=== PATIENT | male | born 1975 | race Caucasian/White ===

== ENCOUNTER → 2018-04-29 08:44 | Outpatient (CLI) | payer BC, SELFPAY ==
[2018-04-29 11:09] LABS: Anion Gap 5 (5-15); BUN 17 mg/dL (7-18); BUN/Creat Ratio 15.7 RATIO (10-20); Calcium,Total 8.8 mg/dL (8.5-10.1); Chloride 107 mmol/L (98-107); Cholesterol 160 mg/dL (200); Creatinine, Serum 1.08 mg/dL (0.70-1.30); EST Glomerular Filtration Rate 80 mL/min (>60); Est Glom Filt Rate - Afr Amer 97 mL/min (>60); Glucose 93 mg/dL (74-106); High Density Lipoprotein 46 mg/dL; Sodium Level 140 mmol/L (136-145); Triglycerides 51 mg/dL; Very Low Density Lipoprotein 10 mg/dL (5-40)
== END ==
PROVIDERS: Family Provider Family Medicine; PCP Family Medicine; Visit Provider Family Medicine
DX: Z00.00 Encounter for general adult medical examination without abnormal findings (principal)
CPT/HCPCS: 36415; 80048; 80061

== ENCOUNTER → 2018-08-19 14:46 | Outpatient (CLI) | payer BC, SELFPAY ==
--- NOTE | 2018-08-19 14:50 | RAD_ITS ---
STUDY: X-RAY - CERVICAL SPINE REASON FOR EXAM: Male, 43 years old. Stiff neck and left side finger tingling. TECHNIQUE: Frontal, lateral, bilateral oblique, swimmer's view, odontoid view of the cervical spine were obtained. COMPARISON: None FINDINGS: Prevertebral soft tissues and airways normal. Craniofacial osseous structures within the field of view unremarkable. Apical lungs clear. Apical thoracic cage intact. Cervical soft tissues normal. Vertebral body height and alignment are normal with preserved lordosis. The facet joints are normally aligned and intact with only minimal facet arthropathy. In the oblique views there is no evidence of bony foraminal stenosis in the posterior element appear intact. The odontoid and lateral masses are intact and aligned. There is normal alignment across the cervicothoracic junction. There are very minimal degenerative features with small anterior osteophytes at C2-C3 and C3-C4. There is mild disc tearing at C5-C6 with mild uncovertebral joint hypertrophy. RAD/Cerv Spine 4 or 5 Views IMPRESSION: Mild spondylosis with disc degeneration slightly more prominent at C5-C6. Electronically Signed: Tigre Prasad, at 15:16 EDT Tel , Service support ,
== END ==
PROVIDERS: Family Provider Family Medicine; PCP Family Medicine; Visit Provider Family Medicine
DX: M54.2 Cervicalgia (principal)
CPT/HCPCS: 72050

== ENCOUNTER 2021-12-06 09:34 | Outpatient (CLI) | payer BC, SELFPAY ==
[2021-12-06 10:41] LABS: Anion Gap 6 (5-15); BUN 20 mg/dL (7-18); BUN/Creat Ratio 17.2 RATIO (10-20); Calcium,Total 9.5 mg/dL (8.5-10.1); Chloride 108 mmol/L (98-107); Cholesterol 222 mg/dL (200); Creatinine, Serum 1.16 mg/dL (0.70-1.30); EST Glomerular Filtration Rate 72 mL/min (>60); Est Glom Filt Rate - Afr Amer 88 mL/min (>60); Glucose 95 mg/dL (74-106); High Density Lipoprotein 64 mg/dL; Potassium 4.7 mmol/L (3.5-5.1); Sodium Level 140 mmol/L (136-145); Thyroid Stim Hormone (TSH) 1.05 uIU/mL (0.358-3.74); Triglycerides 59 mg/dL; Very Low Density Lipoprotein 12 mg/dL (5-40)
== END 2021-12-06 23:59 | disposition home or self-care (01) ==
LOC: MFPLAB 09:38
PROVIDERS: PCP Family Medicine; Referring Provider Family Medicine; Visit Provider Family Medicine
DX: Z00.00 Encounter for general adult medical examination without abnormal findings (principal)
CPT/HCPCS: 36415; 80048; 80061; 84443

== ENCOUNTER → 2023-10-31 | Outpatient (CLI) | payer BC, SELFPAY ==
[2023-10-31 15:34] LABS: Anion Gap 4 (5-15); BUN 18 mg/dL (7-18); BUN/Creat Ratio 15.7 RATIO (10-20); Calcium,Total 9.3 mg/dL (8.5-10.1); Chloride 107 mmol/L (98-107); Cholesterol 206 mg/dL (200); Creatinine, Serum 1.15 mg/dL (0.70-1.30); EST Glomerular Filtration Rate 73 mL/min (>60); Est Glom Filt Rate - Afr Amer 88 mL/min (>60); Glucose 98 mg/dL (74-106); High Density Lipoprotein 74 mg/dL; Potassium 4.4 mmol/L (3.5-5.1); Sodium Level 138 mmol/L (136-145); Triglycerides 40 mg/dL; Very Low Density Lipoprotein 8 mg/dL (5-40)
== END | disposition home or self-care (01) ==
PROVIDERS: PCP Family Medicine; Referring Provider Family Medicine; Visit Provider Family Medicine
DX: Z00.00 Encounter for general adult medical examination without abnormal findings (principal)
CPT/HCPCS: 36415; 80048; 80061

== ENCOUNTER → 2024-02-09 | Outpatient (CLI) | payer BC, SELFPAY ==
--- NOTE | 2024-02-09 16:21 | RAD_ITS ---
INDICATION: ABD PAIN EXAMINATION/TECHNIQUE: X-RAY - XR Abdomen 1 View COMPARISON: None FINDINGS: BOWEL GAS PATTERN: No abnormally distended, air-filled bowel loops or air fluid levels. FREE AIR: No free air below diaphragm. ORGANOMEGALY: Not seen. CALCIFICATIONS: No abnormal calcifications observed. LOWER CHEST: No acute pathology. BONES AND SOFT TISSUES: No acute pathology. RAD/Abdomen Single View IMPRESSION: No radiographic evidence of acute intra-abdominal pathology. Electronically Signed: Jamie Butler DO at 23:56 EDT ,
[2024-02-09 17:40] LABS: Absolute Lymphocyte Count 2.41 X10^3/uL (0.83-4.51); Absolute Neutrophil Count 3.7 X10^3/uL (2.0-7.7); Basophil# 0.06 X10^3/uL; Basophil% 0.9 % (0-1); Eosinophil# 0.07 X10^3/uL; Hematocrit 48.1 % (40-54); Hemoglobin 16.2 g/dL (13.0-16.5); Lymphocyte # 2.41 X10^3/ul (0.83-4.51); Mean Corp Hgb Conc 33.7 g/dL (32-36); Mean Corpuscular Hgb 28.5 pg (27.0-32.0); Mean Corpuscular Volume 84.7 fL (80-94); Mean Platelet Vol. 8.8 fl (6.2-12.0); Monocyte# 0.68 X10^3/uL; Monocyte% 9.9 % (0-10); NRBC Flagged by Analyzer 0 % (0-5); Neutrophil # 3.65 X10^3/uL (2.7-7.7); Neutrophil % 53.1 % (47-70); Platelet Count 379 K/mm3 (150-450); RBC Distribution Width CV 12.7 % (11.6-14.6); Red Blood Count 5.68 M/mm3 (4.6-6.2); White Blood Count 6.9 K/mm3 (4.4-11.0)
[2024-02-09 18:14] LABS: ALB/GLOB Ratio 1.1 RATIO (0.9-2.4); AST(SGOT) 14 U/L (15-37); Alanine Aminotransfer ALT/SGPT 24 U/L (16-61); Albumin, Serum 4.2 g/dL (3.2-5.0); Alkaline Phosphatase 65 U/L (45-117); Anion Gap 7 (5-15); BUN 13 mg/dL (7-18); Calcium,Total 9.3 mg/dL (8.5-10.1); Chloride 109 mmol/L (98-107); Creatinine, Serum 1.18 mg/dL (0.70-1.30); EST Glomerular Filtration Rate 70 mL/min (>60); Est Glom Filt Rate - Afr Amer 85 mL/min (>60); Globulin 3.9 g/dL (2.2-4.2); Glucose 142 mg/dL (74-106); Potassium 3.5 mmol/L (3.5-5.1); Protein, Total 8.1 g/dL (6.4-8.2); Sodium Level 141 mmol/L (136-145)
== END | disposition home or self-care (01) ==
LOC: MTLAB 16:20
PROVIDERS: PCP Family Medicine; Referring Provider Family Medicine; Visit Provider Family Medicine
DX: R10.9 Unspecified abdominal pain (principal)
CPT/HCPCS: 36415; 74018; 80053; 85025

== ENCOUNTER 2024-08-24 08:57 | Day surgery (SDC) | payer BC, SELFPAY ==
[2024-08-24] VITALS (8 sets, daily range): BP systolic 106–138; BP diastolic 89–96; PULSE 69–92; RESP 16; TEMP 36.5–37.4; O2SAT 97–98; BMI 31.1
--- NOTE | 2024-08-24 09:45 | PCM.PRE.AN2 ---
ASA Classification* ASA Classification ASA Classification: 2 Assessment & Plan Anesthesia* Anesthesia Assessment Anesthesia Assessment: Discussed sedation and/or anesthesia options, risks, benefits, and alternatives with patient/parents/legal guardian/POA. Questions invited. The patient/parents/legal guardian/POA seems to understand and agrees to proceed with anesthesia plan. Reviewed the physical assessment, medical history, allergy history and patient home medications list prior to surgery/procedure/anesthetic and documented any changes. Performed airway and anesthesia risk assessments. Anesthesia Type Anesthesia Type: MAC (see written pre anesthesia record for full assessment) Anesthesia Focused Assessment* Blood Pressure: 138/96 Airway Assessment Mouth opens: >3 cm Mallampati Score: II Focused Labs Anesthesia Preop lab: CBC WBC 6.9 K/mm3 (4.4-11.0) 02/09/24 16:21 RBC 5.68 M/mm3 (4.6-6.2) 02/09/24 16:21 Hgb 16.2 g/dL (13.0-16.5) 02/09/24 16:21 Hct 48.1 % (40-54) 02/09/24 16:21 Plt Count 379 K/mm3 (150-450) 02/09/24 16:21 CHEMISTRY Potassium 3.5 mmol/L (3.5-5.1) 02/09/24 16:21 Sodium 141 mmol/L (136-145) 02/09/24 16:21 BUN 13 mg/dL (7-18) 02/09/24 16:21 Creatinine 1.18 mg/dL (0.70-1.30) 02/09/24 16:21 Glucose 142 mg/dL (74-106) H 02/09/24 16:21 TSH 1.05 uIU/mL (0.358-3.74) 12/06/21 09:39 COAG Pre-Assessment Diagnosis/Proposed Procedure Planned Operative Procedure(s): CSCOPE OA Anesthesia History Anesthesia History - laborer golf course: Anesthesia History - laborer golf course Hx Hospitalization No 08/20/24 12:05 Any Problems With Anesthesia No 08/20/24 12:05 Cholinesterase deficiency No 08/20/24 12:05 You/Your Family Experience No 08/20/24 12:05 fever (hyperthermia) with Relationship Recent Exposure to Contagious No 08/24/24 09:19 Disease Does patient have nerve No 08/20/24 12:05 stimulator Patient instructed to have device shut off --Does patient have Pacemaker No 08/24/24 09:19 or ICD? When Was Last Pacemaker Check QUESTION #4 FULL TEXT: You/Your Family Experience fever (hyperthermia) with Anesthesia Last Oral Intake Last Oral intake: Last Oral Intake NPO since 00:00 08/24/24 09:19 Meds taken in AM with sips of No 08/24/24 09:19 water? Meds patient instructed to take am of surgery PONV PONV - laborer golf course: PONV - laborer golf course Female No 08/20/24 12:05 HX of Motion Sickness No 08/20/24 12:05 HX of N/V After Surgery No 08/20/24 12:05 Non-Smoker Yes 08/20/24 12:05 Duration of Surgery greater No 08/20/24 12:05 than 60 minutes Number of Risk Factors 1 08/20/24 12:05 PONV Score Low Risk 08/20/24 12:05 Height & Weight Height & Weight: Anesthesia: Height & Weight Height 5 ft 11 in 08/24/24 09:19 Weight: 101.151 kg 08/24/24 09:19 Body Mass Index (BMI) 31.1 08/24/24 09:19 Respiratory Assessment Respiratory Assessment - laborer golf course: Respiratory Tract Infection Hx - laborer golf course Hx Respiratory Tract Infection No 08/20/24 12:05 STOP Sleep Apnea STOP Sleep Apnea - laborer [employer]: STOP Sleep Apnea - laborer [employer] Hx Hypertension Yes: NO MEDS FOR 5 YRS 08/20/24 12:05 Hx Sleep Apnea No 08/20/24 12:05 CPAP BIPAP Do you snore loudly (louder No 08/20/24 12:05 than talking or can be heard Do you often feel tired/ No 08/20/24 12:05 fatigued/ sleepy during daytime? Has anyone observed you stop Yes 08/20/24 12:05 breathing during sleep? STOP Results Positive 08/20/24 12:05 QUESTION #5 FULL TEXT : Do you snore loudly (louder than talking or can be heard through closed doors)? Tobacco Use History Tobacco Use History - laborer golf course: Tobacco Use History - laborer golf course Tobacco Use Smoking Status Never smoker 08/20/24 12:05 Hx Tobacco Use No 08/20/24 12:05 Years Smoking Packs Smoked per Day Smoking Cessation Date was within the last 15 years Hx Smoking Cessation Date Hx Smoking Cessation Counseling Hematologic Medial History Hematologic Hx - laborer golf course: Hematologic Medical Hx - documentation supervisor Hx of Blood Transfusion No 08/20/24 12:05 Hx of Transfusion in last 3 No 08/20/24 12:05 Months Date of Last Transfusion (if within last 3 months) Ever experience any problems No 08/20/24 12:05 with transfusion(s)? Specify any problems Hx of Preganancy in last 3 N/A 08/20/24 12:05 Months Nurse Filling Out Transfusion DSCHRIBER 08/20/24 12:05 & Questions: Date: 08/20/24 08/20/24 12:05 Time: 12:07 08/20/24 12:05 Patient unable to answer at this time (ie. confused, unrespo /Reproduction History /Reproductive History - laborer golf course: /Reproductive Hx- laborer golf [employer] Hx Now No 08/20/24 12:05 Gestational Age (in weeks): EDC: Hx Hx Para Hx Section SAB No 08/20/24 12:05 PFSH Medical History (Updated 08/20/24 @ 12:11 by Nivia Yuen) Wears hearing aid Wears glasses Depression Alcohol use Anxiety Restless legs Back pain History of IBS Non-smoker Hypertension Family history of colon cancer in mother Home Medications ?Medication ?Instructions ?Recorded ?Last Taken ?Type citalopram 20 mg tablet 20 mg PO DAILY 07/07/24 08/23/24 History Allergy/AdvReac Type Severity Reaction Status Date / Time Penicillins Allergy Hives Verified 08/24/24 09:18 Tetanus Vaccines and Toxoid Allergy Anaphylaxis Verified 08/24/24 09:18 Family History (Updated 07/07/24 @ 10:20 by Ana Lilia Kenyon) Mother Colon cancer Heart disease Father Hypertension Grandfather Colon cancer CAD (coronary artery disease) Surgical History (Updated 08/20/24 @ 12:11 by Nivia Yuen) History of tonsillectomy Social History (Updated 07/07/24 @ 10:21 by Ana Lilia Kenyon) household members: spouse current occupational status: employed current occupation: [employer] Smoking Status: Never smoker alcohol intake: current alcohol intake frequency: holidays/special occasions only substance use type: does not use Review of Systems (Anesthesia) ROS Narrative System reviewed and no additional complaints, except as documented.
--- NOTE | 2024-08-24 09:51 | H&P.OPEN ---
HPI - General HPI Narrative JOSH DE PAZ, is a 49 M who presents for screening colonoscopy. The patient has never had a colonoscopy in the past. He has family history of colon cancer in his mother at age 70. He denies abdominal pain or blood in the stool. [facility] Medical History (Updated 08/20/24 @ 12:11 by Nivia Yuen) Wears hearing aid Wears glasses Depression Alcohol use Anxiety Restless legs Back pain History of IBS Non-smoker Hypertension Family history of colon cancer in mother Home Medications ?Medication ?Instructions ?Recorded ?Last Taken ?Type citalopram 20 mg tablet 20 mg PO DAILY 07/07/24 08/23/24 History Allergy/AdvReac Type Severity Reaction Status Date / Time Penicillins Allergy Hives Verified 08/24/24 09:18 Tetanus Vaccines and Toxoid Allergy Anaphylaxis Verified 08/24/24 09:18 Family History (Updated 07/07/24 @ 10:20 by Ana Lilia Kenyon) Mother Colon cancer Heart disease Father Hypertension Grandfather Colon cancer CAD (coronary artery disease) Surgical History (Updated 08/20/24 @ 12:11 by Nivia Yuen) History of tonsillectomy Social History (Updated 07/07/24 @ 10:21 by Ana Lilia Kenyon) household members: spouse current occupational status: employed current occupation: [employer] Smoking Status: Never smoker alcohol intake: current alcohol intake frequency: holidays/special occasions only substance use type: does not use Past Medical/Surgical History Planned Operation Planned Operative Procedure(s): CSCOPE OA Previous Hospitalizations/Surgeries HX Hospitalizations: No Any Problems With Anesthesia: No You/Your Family Experience Fever (Hyperthermia) With Anes: No Cholinesterase deficiency: No Cardiovascular Hx Hypertension: Yes (NO MEDS FOR 5 YRS) Respiratory Hx Sleep Apnea: No Hx Respiratory Tract Infection/Cold (presently): No Do You Snore Loudly (louder than talking or can be heard): No Do You Often Feel Tired/ Fatigued/ Sleepy Dring Daytime?: No Has Anyone Observed You Stop Breathing During Sleep?: Yes Result (for STOP score): Positive Smoking Status: Never smoker Neurological Does patient have nerve stimulator: No Reproduction : No Miscellaneous Recent Exposure to Contagious Disease: No Allergies Penicillins Allergy (Verified 08/24/24 09:18) Hives Tetanus Vaccines and Toxoid Allergy (Verified 08/24/24 09:18) Anaphylaxis Discharge Is Pt Admitted From a Group Home, or a Detention: No After D/C, Where Do you Plan to Go: Return Home Vital Signs Vital Signs Vital Signs: 08/24/24 09:19 08/24/24 09:19 08/24/24 09:45 Respiratory Pattern Normal Blood Pressure 138/96 H 138/96 H Blood Pressure Mean 110 Blood Pressure Source Monitor Blood Pressure Position Semi-Fowlers Blood Pressure Location Right Arm Weight Weight: 223 lb Body Mass Index (BMI) 31.1 Physical Exam Const alert and oriented x3 HEENT normocephalic Eyes PERRL Resp normal respiratory effort and normal air movement Cardio regular rate and regular rhythm GI soft to palpation, non-tender and non-distended Extremity normal to inspection Assessment & Plan Assessment/Plan (1) Encounter for screening for malignant neoplasm of colon: PLAN: I explained endoscopy in detail to the patient. I explained the risks including but not limited to stroke or heart attack with anesthesia, perforation of the GI tract, bleeding, infection. I explained that any of these could necessitate further emergency surgery. The patient understands and all questions were answered sufficiently. The patient wishes to proceed with procedure. Angel Post MD Pager: [facility] [address] [place] [address], [address] [place] [address] Office: Surgery Risks - Colonoscopy Risks Include but are not Limited To: Risks include but are not limited to: Bleeding, perforation requiring further surgery, inability to complete colonoscopy requiring barium enema.
--- NOTE | 2024-08-24 10:15 | OP.COLON_ITS ---
Patient Name: Jose J Suarez Procedure Date: 08/24/2024 9:53 AM Date of : 1975 Age: 49 Procedure: Colonoscopy Indications: Screening in patient at increased risk: Colorectal cancer in mother 60 or older Providers: Angel Post MD Referring MD: Angel Post MD Medicines: Propofol per Anesthesia Patient Profile: This is a 49 year old male. Refer to note in patient chart for documentation of history and physical. Last Colonoscopy: none. The patient's first colonoscopy is today. Complications: No immediate complications. Procedure: Pre-Anesthesia Assessment: - Prior to the procedure, a History and Physical was performed, and patient medications and allergies were reviewed. The patient's tolerance of previous anesthesia was also reviewed. The risks and benefits of the procedure and the sedation options and risks were discussed with the patient. All questions were answered, and informed consent was obtained. Prior Anticoagulants: The patient has taken no anticoagulant or antiplatelet agents. After reviewing the risks and benefits, the patient was deemed in satisfactory condition to undergo the procedure. After I obtained informed consent, the scope was passed under direct vision. Throughout the procedure, the patient's blood pressure, pulse, and oxygen saturations were monitored continuously. The colonoscope was introduced through the anus and advanced to the cecum, identified by appendiceal orifice and ileocecal valve. The colonoscopy was performed without difficulty. The patient tolerated the procedure well. The quality of the bowel preparation was good. The ileocecal valve, appendiceal orifice, and rectum were photographed. Scope In: 10:02:26 AM Scope Withdrawal Time 0 hours 6 minutes 8 seconds Scope Out: 10:11:36 AM Total Procedure Duration Time 0 hours 9 minutes 10 seconds Findings: The entire examined colon appeared normal on direct and retroflexion views. Impression: - The entire examined colon is normal on direct and retroflexion views. - No specimens collected. Recommendation: - Discharge patient to home. - Resume previous diet. - Continue present medications. - Repeat colonoscopy in 10 years for screening purposes. Procedure Code(s): --- Professional --- 26038, Colonoscopy, flexible; diagnostic, including collection of specimen(s) by brushing or washing, when performed (separate procedure) Diagnosis Code(s): --- Professional --- Z80.0, Family history of malignant neoplasm of digestive organs CPT copyright 2021 [employer]. All rights reserved. The codes documented in this report are preliminary and upon consumer lending manager review may be revised to meet current compliance requirements. Angel Post MD 08/24/2024 10:14:55 AM This report has been signed electronically. Number of Addenda: 0 Note Initiated On: 08/24/2024 9:53 AM
--- NOTE | 2024-08-24 10:15 | OP.CCLET_ITS ---
08/24/2024 Philipp Howe MD [address] [phone] Re : Colonoscopy procedure for Jose J Suarez Dear Dr. Howe This procedure was performed on Saturday, August 24, 2024. My impressions and recommendations are as follows: Impressions : - The entire examined colon is normal on direct and retroflexion views. - No specimens collected. Recommendations : - Discharge patient to home. - Resume previous diet. - Continue present medications. - Repeat colonoscopy in 10 years for screening purposes. My findings are described in the full procedure note, which is enclosed. If I can be of further assistance, please feel free to contact me at Doctor phone number(s): , Work: . Sincerely, Angel Post MD 08/24/2024 10:14:55 AM This report has been signed electronically.
--- NOTE | 2024-08-24 10:17 | PCM.POST.ANE ---
Anesthesia: Postop Eval I Current Vital Signs Temperature: 97.8 F Pulse Rate: 80 Blood Pressure: 106/89 Respiratory Rate: 16 Pulse Ox: 98 Oxygen Delivery Method: Room Air Assessment Airway patent: Yes Spontaneous unlabored respirations: Yes Mental status: Awake and Calm nausea: No Vomiting: No Anesthesia Complication: No Fluid Hydration Crystalloid volume administer (ml): 10 Total IV fluid infused: 10 Progress Note Anesthesia document: Postop Eval 1 completed: Yes
--- NOTE | 2024-08-24 10:23 | PCM.POSTANE2 ---
Anesthesia Postop Eval I Sum Postop Eval Completion status Anesthesia document: Postop Eval 1 completed: Yes Anesthesia Postop Eval I Summary Anesthesia Postop Eval I Summary: Anesthesia Postop Eval I: Assessment Summary Airway patent Yes 08/24/24 10:18 VENDOR MANAGEMENT CONSULTANT.[email or web address] Spontaneous unlabored Yes 08/24/24 10:18 VENDOR MANAGEMENT CONSULTANTJOE respirations Mental status Awake,Calm 08/24/24 10:18 VENDOR MANAGEMENT CONSULTANT.LILIANA nausea No 08/24/24 10:18 VENDOR MANAGEMENT CONSULTANT.LILIANA Vomiting No 08/24/24 10:18 VENDOR MANAGEMENT CONSULTANTJOE Anesthesia Postop Eval I: Fluid Summary Crystalloid volume administer 10 08/24/24 10:18 ASH.LILIANA (ml) Colloids volume administered ( ml) Blood Product volume administered (ml) Total IV fluid infused 10 08/24/24 10:18 AZAR Anesthesia Postop Eval I: Summary Notes Anesthesia Complication No 08/24/24 10:18 AZAR Anesthesia Complication Comment: Post-operative progress note Anesthesia: Postop Eval II Evaluation Mental status: Awake Pain Level: 0 nausea: No Vomiting: No
== END 2024-08-24 10:45 | disposition home or self-care (01) ==
LOC: EN 08:59 → AC 09:00
PROVIDERS: PCP Family Medicine; Referring Provider Surgery; Visit Provider Surgery
PROC: 0DJD8ZZ Inspection of Lower Intestinal Tract, Via Natural or Artificial Opening Endoscopic (ICD-10-PCS; CPT 45378; principal; 2024-08-24 09:55)
DX: Z12.11 Encounter for screening for malignant neoplasm of colon (principal); I10 Essential (primary) hypertension; Z80.0 Family history of malignant neoplasm of digestive organs; F32.A Depression, unspecified; Z79.899 Other long term (current) drug therapy
CPT/HCPCS: 45378; A4216; J3490